=== PATIENT | male | born 1985 | race Caucasian/White ===

== ENCOUNTER 2018-05-11 08:58 | Emergency (ER) | payer OTHER, SELFPAY ==
[2018-05-11 09:04] VITALS: BP 140/75; PULSE 84; RESP 20; TEMP 37; O2SAT 99; BMI 55.3
--- NOTE | 2018-05-11 09:11 | XR_ITS ---
XR hand LT min 3V HISTORY: Pain following injury ITS.REASON: CRUSH INJURY LEFT INDEX FINGER ORDERING PHYSICIAN: Jose Eduardo Bae MD PATIENT AGE: 32 years COMPARISON: None FINDINGS: Comminuted fracture involves the distal aspect of the proximal phalanx of the second digit and the proximal aspect of the middle phalanx of the second digit. There is mild dorsal displacement of the middle phalanx x 5 mm. Multiple small fragments are present about the PIP joint. No radio opaque foreign body. IMPRESSION: Comminuted fracture at the PIP joint of the second digit as described above with 5 mm dorsal displacement of the middle phalanx
--- NOTE | 2018-05-11 09:26 | [facility].EDWNDL ---
ED Disposition Clinical Impression: Crushing injury of left index finger, initial encounter, Laceration Disposition: Xfer Critical Access Hosp Condition on Discharge: Fair Instructions: DI for Laceration Repair, DI for Wound Infection Additional Instructions: Being transferred to the Hand surgery, Dr. Leon for definitive care. Transferred to ED for Hand surgery Forms: Transfer Record - ED Time of Disposition: 10:24 - Critical Care Critical Care Time: No Attestation: On , the high probability of a clinically significant, sudden or life threatening deterioration of the following system(s) required my full and direct attention, intervention and personal management. The time I documented below is in addition to time spent performing reported procedures but includes the following listed in this critical care notation. Medical Decision Making - Medical Records Medical records reviewed: Yes: I reviewed the patient's medical records. - Jj Inquiry Pt receiving controlled substance: Yes Jj was queried for this patient: No Reason not queried -: Emergent pt cond-no time Risks and benefits of using a controlled substance: were discussed with pt by me Vital Signs: 05/11/18 09:04 05/11/18 09:56 05/11/18 10:07 Temperature 98.6 F 98.1 F Temperature Source Oral Pulse Rate 76 Pulse Rate [Right Brachial] 84 80 Respiratory Rate 20 18 18 Blood Pressure 136/83 Blood Pressure [Right Arm] 140/75 135/83 Blood Pressure Mean [Right Arm] 96 100 Blood Pressure Source [Right Arm] Automatic Cuff Automatic Cuff Blood Pressure Position [Right Arm] Sitting Sitting 02 Sat by Pulse Oximetry 99 99 Oxygen Delivery Method Room Air Room Air Room Air 05/11/18 10:22 Temperature Temperature Source Pulse Rate Pulse Rate [Right Brachial] 86 Respiratory Rate 18 Blood Pressure Blood Pressure [Right Arm] 141/98 Blood Pressure Mean [Right Arm] 112 Blood Pressure Source [Right Arm] Automatic Cuff Blood Pressure Position [Right Arm] Sitting 02 Sat by Pulse Oximetry 98 Oxygen Delivery Method Room Air - Lab Data Lab Results 05/11/18 10:00: Urine Color Yellow, Urine Appearance Clear, Urine pH 6.0, Ur Specific [place] 1.025, Urine Protein Negative, Urine Glucose (UA) Negative, Urine Ketones Negative, Urine Blood 2+, Urine Nitrate Negative, Urine Bilirubin Negative, Urine Urobilinogen 0.2, Ur Leukocyte Esterase Negative, Urine RBC 20-50, Urine WBC None, Ur Squamous Epith Cells Occasional, Urine Bacteria Trace, Urine Mucus 4+ 07/09/18 10:00: Urine Opiates Screen Negative, Urine Methadone Screen Negative, Ur Barbituates Screen Negative, Ur Phencyclidine Scrn Negative, Ur Amphetamines Screen Negative, U Benzodiazepines Scrn Negative, Urine Cocaine Screen Negative, U Marijuana (THC) Screen Negative Orders (Tests/Meds): ED MEDICATIONS Discontinued Medications Generic Name Dose Route Start Last Admin Trade Name Freq PRN Reason Stop Dose Admin Sodium Chloride 500 mls @ 999 mls/hr 05/11/18 09:45 05/11/18 09:55 Sod Chlor 0.9% 1000ml Bag IV 05/11/18 10:15 999 mls/hr .Q31M JARRET Administration Cefazolin Sodium 1 gm/ Sodium 50 mls @ 100 mls/hr 05/11/18 09:37 05/11/18 09:54 Chloride IV 05/11/18 10:06 100 mls/hr ONCE ONE Administration Protocol Morphine Sulfate 4 mg 05/11/18 09:37 05/11/18 09:53 Morphine 4mg/Ml Syringe IV 05/11/18 09:38 4 mg ONCE ONE Administration Ondansetron HCl 4 mg 05/11/18 09:37 05/11/18 09:53 Zofran 4mg/2ml Vial IV 05/11/18 09:38 4 mg ONCE ONE Administration Tetanus/Reduced Diphtheria/Acell Pertussis 0.5 ml 05/11/18 09:40 05/11/18 09:53 Adacel Tdap 0.5ml Syringe IM 05/11/18 09:41 0.5 ml .ONCE ONE Administration - Radiology Data #1 Image(s): Hand Image Reviewed: Yes I reviewed the patient's radiol
--- NOTE | 2018-05-11 09:31 | ED_ITS ---
ED Disposition Clinical Impression: Crushing injury of left index finger, initial encounter, Laceration Disposition: Xfer Critical Access Hosp Condition on Discharge: Fair Instructions: DI for Laceration Repair, DI for Wound Infection Additional Instructions: Being transferred to the Hand surgery, Dr. Leon for definitive care. Transferred to ED for Hand surgery Forms: Transfer Record - ED Time of Disposition: 10:24 - Critical Care Critical Care Time: No Attestation: On , the high probability of a clinically significant, sudden or life threatening deterioration of the following system(s) required my full and direct attention, intervention and personal management. The time I documented below is in addition to time spent performing reported procedures but includes the following listed in this critical care notation. Medical Decision Making - Medical Records Medical records reviewed: Yes: I reviewed the patient's medical records. - Jj Inquiry Pt receiving controlled substance: Yes Jj was queried for this patient: No Reason not queried -: Emergent pt cond-no time Risks and benefits of using a controlled substance: were discussed with pt by me Vital Signs: 05/11/18 09:04 05/11/18 09:56 05/11/18 10:07 Temperature 98.6 F 98.1 F Temperature Source Oral Pulse Rate 76 Pulse Rate [Right Brachial] 84 80 Respiratory Rate 20 18 18 Blood Pressure 136/83 Blood Pressure [Right Arm] 140/75 135/83 Blood Pressure Mean [Right Arm] 96 100 Blood Pressure Source [Right Arm] Automatic Cuff Automatic Cuff Blood Pressure Position [Right Arm] Sitting Sitting 02 Sat by Pulse Oximetry 99 99 Oxygen Delivery Method Room Air Room Air Room Air 05/11/18 10:22 Temperature Temperature Source Pulse Rate Pulse Rate [Right Brachial] 86 Respiratory Rate 18 Blood Pressure Blood Pressure [Right Arm] 141/98 Blood Pressure Mean [Right Arm] 112 Blood Pressure Source [Right Arm] Automatic Cuff Blood Pressure Position [Right Arm] Sitting 02 Sat by Pulse Oximetry 98 Oxygen Delivery Method Room Air - Lab Data Lab Results 05/11/18 10:00: Urine Color Yellow, Urine Appearance Clear, Urine pH 6.0, Ur Specific [place] 1.025, Urine Protein Negative, Urine Glucose (UA) Negative, Urine Ketones Negative, Urine Blood 2+, Urine Nitrate Negative, Urine Bilirubin Negative, Urine Urobilinogen 0.2, Ur Leukocyte Esterase Negative, Urine RBC 20- 50, Urine WBC None, Ur Squamous Epith Cells Occasional, Urine Bacteria Trace, Urine Mucus 4+ 07/09/18 10:00: Urine Opiates Screen Negative, Urine Methadone Screen Negative, Ur Barbituates Screen Negative, Ur Phencyclidine Scrn Negative, Ur Amphetamines Screen Negative, U Benzodiazepines Scrn Negative, Urine Cocaine Screen Negative , U Marijuana (THC) Screen Negative Orders (Tests/Meds): ED MEDICATIONS Discontinued Medications Generic Name Dose Route Start Last Admin Trade Name Freq PRN Reason Stop Dose Admin Sodium Chloride 500 mls @ 999 mls/hr 05/11/18 09:45 05/11/18 09:55 Sod Chlor 0.9% 1000ml Bag IV 05/11/18 10:15 999 mls/hr .Q31M JARRET Administration Cefazolin Sodium 1 gm/ Sodium 50 mls @ 100 mls/hr 05/11/18 09:37 05/11/18 09: 54 Chloride IV 07
--- NOTE | 2018-05-11 09:45 | PC.NURSE ---
contacted dr. [facility] and they advised they will have in call us back
--- NOTE | 2018-05-11 09:47 | PC.NURSE ---
Dr. Bae is speaking with Dr. Torres regarding patient.
--- NOTE | 2018-05-11 09:50 | PC.NURSE ---
[facility] arrived to transfer patient to .
[2018-05-11 09:56] VITALS: BP 135/83; PULSE 80; RESP 18; O2SAT 99
--- NOTE | 2018-05-11 09:57 | PC.NURSE ---
Lou is on the phone with to speak with a doctor about transfer.
--- NOTE | 2018-05-11 10:01 | PC.NURSE ---
Sent urine up on patient.
[2018-05-11 10:05] LABS: Appearance,Urine CLEAR (Clear); Bilirubin,Urine Negative (Negative); Blood, Urine 2+ (Negative); Color,Urine YELLOW (Yellow); Glucose,Urine (UA) Negative (Negative); Ketones,Urine Negative (Negative); Leukocyte Esterase,Urine Negative (Negative); Microscopic, Urine URINE MICROSCOPIC (MICROSCOPIC); Nitrate,Urine Negative (Negative); Protein,Urine Negative (Negative); Specific Gravity, Urine 1.025 (1.005-1.030); Urobilinogen,Urine 0.2 EU/dl (0.2)
[2018-05-11 10:07] VITALS: BP 136/83; PULSE 76; RESP 18; TEMP 36.7; O2SAT 99
[2018-05-11 10:14] LABS: Amphetamine/Metha Screen,Urine Negative ng/mL (<1000); Barbiturates Screen,Urine Negative ng/mL (<200); Benzodiazepines Screen,Urine Negative ng/mL (<200); Cannabinoid Screen,Urine Negative ng/mL (<50); Cocaine Screen,Urine Negative ng/mL (<300); Methadone Screen,Urine Negative ng/mL (<300); Opiate Screen,Urine Negative ng/mL (<300); Phencyclidine Screen,Urine Negative ng/mL (<25)
--- NOTE | 2018-05-11 10:14 | PC.NURSE ---
on phone with [facility]
[2018-05-11 10:21] LABS: Bacteria,Urine Trace /lpf; Mucus,Urine 4+ /lpf; RBC,Urine 20-50 #/hpf (0-3); Squamous Epithelial Cell,Urine Occasional #/hpf (0-5)
[2018-05-11 10:22] VITALS: BP 141/98; PULSE 86; RESP 18; O2SAT 98
[2018-05-11 10:31] VITALS: BP 135/83; PULSE 80; RESP 18; TEMP 36.6; O2SAT 98
== END 2018-05-11 10:37 | disposition short-term general hospital (02) ==
PROVIDERS: Emergency Provider General Practice
DX: S67.191A Crushing injury of left index finger, initial encounter (principal); Z23 Encounter for immunization; S61.211A Laceration without foreign body of left index finger without damage to nail, initial encounter; S66.321A Laceration of extensor muscle, fascia and tendon of left index finger at wrist and hand level, initial encounter; W31.89XA Contact with other specified machinery, initial encounter; Y92.69 Other specified industrial and construction area as the place of occurrence of the external cause
CPT/HCPCS: 73130; 80305; 81001; 90471; 90715; 96365; 96375; 99284; J2405